=== PATIENT | female | born 1965 | race Caucasian/White ===

== ENCOUNTER → 2020-10-28 | Outpatient (CLI) | payer BC | END | disposition home or self-care (01) | LOC: ROC 10-23 13:47 | PROVIDERS: ATTEND Radiology Radiation Oncology | DX: C51.9 Malignant neoplasm of vulva, unspecified (principal) | CPT/HCPCS: 99214; G0463 ==

== ENCOUNTER 2021-01-15 11:59 | Outpatient (CLI) | payer BC ==
[~2021-01-15 11:59] MED LIST: ASHW300C PO; CHOL200021 PO; FAMO10TA10 PO; FISH1CAP PO; IODI30TI SL; L.AC1CAP6 PO; MEDI473O SL; MILK175T2 PO; POTA5TAB2 PO; TRAM50TA2 PO; VITA10004 PO
== END 2021-01-15 23:59 | disposition home or self-care (01) ==
LOC: ROC 11:59
PROVIDERS: ATTEND Radiology Radiation Oncology
DX: Z08 Encounter for follow-up examination after completed treatment for malignant neoplasm (principal); C51.9 Malignant neoplasm of vulva, unspecified; R10.2 Pelvic and perineal pain
CPT/HCPCS: 99213; G0463

== ENCOUNTER → 2021-02-11 | Outpatient (CLI) | payer BC | END | disposition home or self-care (01) | LOC: ROC 08:45 | PROVIDERS: ATTEND Radiology Radiation Oncology | DX: C51.9 Malignant neoplasm of vulva, unspecified (principal) | CPT/HCPCS: 99213; G0463 ==